=== PATIENT | female | born 1965 | race Caucasian/White ===

== ENCOUNTER 2018-04-19 13:01 | Observation (INO) | END 2018-04-20 16:35 | disposition home or self-care (01) ==

== ENCOUNTER 2018-05-09 00:31 | Emergency (ER) | END 2018-05-09 01:51 | disposition left against medical advice (07) ==

== ENCOUNTER → 2018-10-28 | Outpatient (CLI) | payer MEDICAID ==
[~2018-10-28] MED LIST: HEPARIN 1000 UNITS/ML 10 ML INJ ONE; HYDR-3601 PO; IOHEXOL 300MG/ML 30 ML BTL ONE
== END | disposition home or self-care (01) ==
LOC: RAD 13:23
PROVIDERS: ATTEND Internal Medicine Hematology & Oncology
DX: C50.919 Malignant neoplasm of unspecified site of unspecified female breast (principal)
CPT/HCPCS: 77001; J1644; Q9967; Z7610